=== PATIENT | female | born 1970 | race African-American/Black ===

== ENCOUNTER → 2024-02-01 | Outpatient (REF) | payer OTHER | LOC: MAMMO 11:04 | PROVIDERS: ATTEND Specialist | DX: Z85.3 Personal history of malignant neoplasm of breast (principal) | CPT/HCPCS: 77066 ==

== ENCOUNTER → 2025-01-16 | Outpatient (REF) | payer OTHER | LOC: MAMMO 09:17 | PROVIDERS: ATTEND Specialist | DX: C50.511 Malignant neoplasm of lower-outer quadrant of right female breast (principal) | CPT/HCPCS: 77066 ==